=== PATIENT | male | born 1950 | race Hispanic/Latino ===

== ENCOUNTER 2017-04-07 12:30 | Emergency (ER) | payer BC ==
[~2017-04-07] VITALS: Ht 172.7 cm; Wt 95.4 kg
[~2017-04-07 12:30] MED LIST: ACIPHEX20 MG PO; ACTOS30 MG PO; BYDUREON2 MG SC; CYMBALTA30 MG PO; DILAUDID2 MG PO; GLUMETZA1000 M1 PO; INVOKANA300 MG PO; LANTUS 3 M100 UNITS1 SC; LISINOPRIL20 MG PO; PRAVACHOL80 MG PO; RAPAFLO8 MG PO
[2017-04-07] MEDS ORDERED: NORCO 7.5/321 TABLET PO (14:20)
[2017-04-07 14:56] VITALS: BP 141/75
== END 2017-04-07 14:57 | disposition home or self-care (01) ==
LOC: EME 12:30
DX: S22.41XA Multiple fractures of ribs, right side, initial encounter for closed fracture (principal); S63.287A Dislocation of proximal interphalangeal joint of left little finger, initial encounter; E11.40 Type 2 diabetes mellitus with diabetic neuropathy, unspecified; I10 Essential (primary) hypertension; Z79.4 Long term (current) use of insulin; Z87.891 Personal history of nicotine dependence
CPT/HCPCS: 71250; 72125; 73130; 99281; 99284; J2270

== ENCOUNTER 2017-08-27 15:36 | Inpatient (IN) | payer OTHER, BC ==
[~2017-08-27] VITALS: Ht 172.7 cm; Wt 76.0 kg
[~2017-08-27 15:36] MED LIST changes: +ACTOS15 MG PO; -ACTOS30 MG PO; -CYMBALTA30 MG PO; +CYMBALTA60 MG PO; -GLUMETZA1000 M1 PO; +GLUMETZA500 M1 PO; +INVOKANA100 MG PO; -INVOKANA300 MG PO; +LISINOPRIL10 MG PO; -LISINOPRIL20 MG PO; +NORCO 7.5/321 TABLET PO
[2017-08-27 17:16] LABS: HEMATOCRIT 40.3 % (38.0-50.0); HEMOGLOBIN 13.3 G/DL (12.5-16.6); MCH 30.1 PG (29.0-34.0); MCV 91.2 FL (86-99); PLATELET COUNT 300 K/uL (156-360); RBC DIS.WIDTH-CV 13.6 % (11.8-14.6); RBC DIS.WIDTH-SD 45.6 % (39-53); RED BLOOD COUNT 4.42 M/uL (4.00-5.50); WHITE BLOOD COUNT 5.8 K/uL (4.1-10.2)
[2017-08-27 17:23] LABS: INTER. NORMALIZED RATIO 0.8
[2017-08-27 17:26] LABS: ALBUMIN 3.8 g/dL (3.2-4.8); CHLORIDE 106 mEq/L (99-109); POTASSIUM 4.2 mEq/L (3.7-5.4); PTT 28.1 SEC (25-37); SODIUM 138 mEq/L (136-147)
[2017-08-27 17:29] LABS: GLUCOSE 157 mg/dL (70-99); TOTAL PROTEIN 6.2 g/dL (6.4-8.3)
[2017-08-27 17:30] LABS: TOTAL BILIRUBIN 0.1 mg/dL (0.0-1.0)
[2017-08-27 17:31] LABS: APPEARANCE CLEAR ((CLEAR)); BILIRUBIN NEGATIVE; BLOOD NEGATIVE; COLOR YELLOW ((YELLOW)); GLUCOSE (STRIP) >=500; KETONES 20; LEUKOCYTES NEGATIVE; NITRITE NEGATIVE; PROTEIN (STRIP) NEGATIVE; SPECIFIC GRAVITY 1.032 (1.000-1.030); UROBILINOGEN 0.2 MG/DL (0.2-1.0)
[2017-08-27 17:32] LABS: ALKALINE PHOSPHATASE 57 IU/L (3-129); CREATININE 0.7 mg/dL (0.6-1.3); GFR ESTIMATE (CALCULATED) > 59 mL/min/ (58.99-99999); SERUM ETHYL ALCOHOL < 10 mg/dL
[2017-08-27 17:33] LABS: UREA NITROGEN (BUN) 21 mg/dL (9-23)
[2017-08-27 17:34] LABS: AST (GOT) 16 IU/L (2-34)
[2017-08-27 17:35] LABS: ALT (GPT) 23 IU/L (3-49)
[2017-08-27 17:36] LABS: LIPASE 52 U/L (1.0-51.0)
[2017-08-27 18:00] LABS: AMPHETAMINE NEGATIVE (500 ng/mL); BARBITURATES NEGATIVE (200 ng/mL); BENZODIAZEPINES NEGATIVE (150 ng/mL); BUPRENORPHINE NEGATIVE (10 ng/mL); COCAINE NEGATIVE (150 ng/mL); METHADONE NEGATIVE (200 ng/mL); METHAMPHETAMINE NEGATIVE (500 ng/mL); OPIATES (MORPHINE) NEGATIVE (100 ng/mL); OXYCODONE NEGATIVE (100 ng/mL); PHENCYCLIDINE NEGATIVE (25 ng/mL); PROPOXYPHENE NEGATIVE (300 ng/mL); THC CANNABINOIDS NEGATIVE (50 ng/mL); TRICYCLIC ANTIDEPRESSANTS NEGATIVE (300 ng/mL)
[2017-08-27 18:27] LABS: TROP-I INTERPRETATION NEGATIVE; TROPONIN-I < 0.01 ng/mL (0.0-0.30)
[2017-08-27] MEDS ORDERED: TRESIBA FL100 UNIT/1 SC (20:46)
[2017-08-27] MEDS ORDERED: LINZESS290 MCG PO (20:47)
[2017-08-27] MEDS ORDERED: LO-DOSE ASPIRIN81 M2 PO (20:48)
[2017-08-27] MEDS ORDERED: CRESTOR10 MG PO (20:48)
[2017-08-27] MEDS ORDERED: TEGRETOL200 MG PO (20:49)
[2017-08-27] MEDS ORDERED: AVODART0.5 MG PO (20:54)
[2017-08-27] MEDS ORDERED: [UNRECOGNIZED DRUG - OTHER] SC (20:54)
[2017-08-27] MEDS ORDERED: METANX CAPSULE1 EACH PO (20:55)
[2017-08-27] MEDS ORDERED: CENTRUM SILVER1 EAC5 PO (20:56)
[2017-08-27 22:31] VITALS: BP 120/62
[2017-08-28 03:29] VITALS: BP 109/53
[2017-08-28 06:30] LABS: HEMATOCRIT 38.9 % (38.0-50.0); HEMOGLOBIN 12.5 G/DL (12.5-16.6); MCH 29.2 PG (29.0-34.0); MCHC 32.1 G/DL (30.0-36.0); MCV 90.9 FL (86-99); PLATELET COUNT 283 K/uL (156-360); RBC DIS.WIDTH-CV 13.7 % (11.8-14.6); RBC DIS.WIDTH-SD 45.1 % (39-53); RED BLOOD COUNT 4.28 M/uL (4.00-5.50); WHITE BLOOD COUNT 4.7 K/uL (4.1-10.2)
[2017-08-28 08:08] VITALS: BP 105/64
[2017-08-28 11:07] VITALS: BP 116/60
[2017-08-28 17:18] VITALS: BP 126/65
[2017-08-28 23:53] VITALS: BP 115/58
[2017-08-29 05:24] VITALS: BP 122/68
[2017-08-29 08:19] VITALS: BP 129/71
[2017-08-29] MEDS ORDERED: LIDODERM 5% P1 PATCH TD (14:51)
[2017-08-29] MEDS ORDERED: NORCO 5/3251 TABLET PO (14:51)
[2017-08-29 17:18] VITALS: BP 118/63
== END 2017-08-29 17:53 | disposition home or self-care (01) | DRG 547 ==
LOC: EME 15:36 → TRA 15:36 → EDOF 21:08 → 3EAST 21:08 → ENRESERV 21:09 → EDOF 21:10 → ENRESERV 21:30 → 3EAST 22:10
PROVIDERS: Emergency Medicine; Surgery
DX: M45.4 Ankylosing spondylitis of thoracic region (principal); S16.1XXA Strain of muscle, fascia and tendon at neck level, initial encounter; M48.14 Ankylosing hyperostosis [Forestier], thoracic region; S30.1XXA Contusion of abdominal wall, initial encounter; G89.11 Acute pain due to trauma; G89.29 Other chronic pain; I10 Essential (primary) hypertension; M48.061 Spinal stenosis, lumbar region without neurogenic claudication; M54.10 Radiculopathy, site unspecified; K59.00 Constipation, unspecified; Z87.891 Personal history of nicotine dependence; V43.52XA Car driver injured in collision with other type car in traffic accident, initial encounter; E11.65 Type 2 diabetes mellitus with hyperglycemia
CPT/HCPCS: 70450; 71260; 72125; 72129; 72132; 74177; 80053; 81003; 82948; 83690; 84484; 85027; 85610; 85730; 99281; 99285; G0480; J1815; J2405; J3010; J7040; J7120